=== PATIENT | male | born 1985 | race Caucasian/White ===

== ENCOUNTER → 2018-01-14 | Outpatient (CLI) | payer BC ==
--- NOTE | 2018-01-15 07:50 | MR ---
MR brain HISTORY: Headache Multiplanar multisequence imaging through the brain. Correlation to CT brain 08/26/2016 There is no restricted diffusion. No hemorrhage or hydrocephalus is noted. Focus of fluid signal pres ent in the posterior fossa adjacent to the medial aspect of the right cerebellar hemisphere shows a s table appearance is compatible with arachnoid cyst. Corpus callosum, pituitary, cervical medullary ju nction, cerebellopontine angles are normal. Inflammatory changes present in the maxillary sinuses lef t greater than right. There are normal vascular flow voids. Brain signal is normal. No hemorrhage or hydrocephalus. IMPRESSION: Sinus disease. Incidental arachnoid cyst.
== END | disposition home or self-care (01) ==
LOC: RADMRIMAIN 19:45
PROVIDERS: ATTEND Internal Medicine
DX: R51 Headache (principal)
CPT/HCPCS: 70551

== ENCOUNTER 2018-06-06 16:40 | Emergency (ER) | payer BC ==
[2018-06-06 16:49] VITALS: BP 121/77; PULSE 94; RESP 18; TEMP 98.3
[2018-06-06] MEDS ORDERED: IBUPROFEN 600 MG STARTER PACK 4 TAB BTL PO STA (16:57)
--- NOTE | 2018-06-06 17:00 | ED ---
General Adult HPI - General Chief complaint: Extremity Injury, Lower Stated complaint: LEFT KNEE INJURY Time Seen by Provider: 06/06/18 16:51 Source: patient, family, RN notes reviewed Mode of arrival: wheelchair Limitations: no limitations - History of Present Illness Initial comments: Chief complaint and history of present illness this is a 33-year-old male here with significant other. The patient reports she was playing basketball approximate one hour ago twisted and injured his left knee. Denies any previous knee injuries. - Related Data Previous Rx's Medication Instructions Recorded Ibuprofen [Motrin] 600 mg PO Q6HR PRN #20 tab 06/06/18 Allergies Allergy/AdvReac Type Severity Reaction Status Date / Time No Known Allergies Allergy Verified 06/06/18 16:48 Review of Systems ROS Statement: Those systems with pertinent positive or pertinent negative responses have been documented in the HPI. Review of systems. No complaint of any thing other than pain to his left knee. All systems were reviewed. Past medical problems none. Family history no cancers. Patient denies smoking denies drinking. No ALLERGIES. ROS Other: All systems not noted in ROS Statement are negative. Past Medical History Past Medical History: No Reported History History of Any Multi-Drug Resistant Organisms: None Reported Past Surgical History: Tonsillectomy Past Psychological History: No Psychological Hx Reported Smoking Status: Never smoker Past Alcohol Use History: None Reported Past Drug Use History: None Reported General Exam - General Exam Comments Initial Comments: Physical exam; temp 98.3 pulse 94 respiratory rate 18 pulse ox 97% room air blood pressure 121/77 Examination of the left knee finds no pain with varus valgus or drawer testing. Neurovascular status is intact. Patient reports that when he stands he has pain and feels of the knee wants to go out on him. Patient denies any pain any other joint are part of the body. Has no other complaints this time. Patient was given ibuprofen 600 mg by mouth. Limitations: no limitations Course Vital Signs 06/06/18 16:48 Temperature 98.3 F Pulse Rate 94 Respiratory 18 Rate Blood Pressure 121/77 O2 Sat by Pulse 97 Oximetry Medical Decision Making - Medical Decision Making Medical decision making; is a 33-year-old male here with complaint of injury to his left knee while playing basketball. X-ray of the left knee was done and reviewed by radiologist his findings are; there is no acute fracture or dislocation evident in the left knee. The tricompartment joint spaces appear within normal limits. The overlying soft tissue appears unremarkable. Impression there is no acute fracture dislocation in the left knee. As read by Dr. sierra. Reexamination again found no significant pain or movement with varus valgus or drawer testing. We did discuss acute knee strain and sprain. Also possibility of internal derangement. The patient will continue wearing a neoprene knee stabilizer advised to ice elevate rest and ibuprofen 600 mg for pain and discomfort. He does not have orthopedic surgeon then he'll be referred to the on-call orthopedic surgeon[facility]. Disposition Clinical Impression: Sprain of left knee Disposition: HOME SELF-CARE Condition: Fair Instructions: Knee Sprain (ED) Prescriptions: Ibuprofen [Motrin] 600 mg PO Q6HR PRN #20 tab PRN Reason: Pain Is patient prescribed a controlled substance at d/c from ED?: No Referrals: Carlos Enrique Gómez MD [Primary Care Provider] - 1-2 days Maximus Camp DO [Doctor of Osteopathic Medicine] - 1-2 days Time of Disposition: 17:54
--- NOTE | 2018-06-06 17:33 | XR ---
EXAMINATION TYPE: XR knee complete LT DATE OF EXAM: 06/06/2018 CLINICAL HISTORY: Basketball injury with pain TECHNIQUE: Three views of the left knee are obtained. COMPARISON: None. FINDINGS: There is no acute fracture/dislocation evident in left knee. The tri-compartment joint sp aces appear within normal limits. The overlying soft tissue appears unremarkable. IMPRESSION: There is no acute fracture or dislocation in the left knee.
== END 2018-06-06 18:01 | disposition home or self-care (01) ==
LOC: EC 16:40
DX: S83.92XA Sprain of unspecified site of left knee, initial encounter (principal); X50.1XXA Overexertion from prolonged static or awkward postures, initial encounter; Y93.67 Activity, basketball
CPT/HCPCS: 99283

== ENCOUNTER → 2020-10-05 | Outpatient (CLI) | payer BC ==
--- NOTE | 2020-10-05 16:07 | MR ---
EXAMINATION TYPE: MR knee RT wo con DATE OF EXAM: 10/05/2020 COMPARISON: None HISTORY: RIGHT KNEE PAIN, UNSPECIFIED TEAR OF UNSPECIFIED MENISCUS TECHNIQUE: Multiplanar, multisequence imaging of the right knee is performed without IV contrast. FINDINGS: MEDIAL MENISCUS: Radial tear appears to be at the anterior and posterior medial meniscal junction. Ob lique signal within the posterior horn medial meniscus is present. Communication with the articular s urface is not identified. This could be internal derangement or type I tear. Anterior horn medial men iscus appears intact. Anterior and posterior horns of the lateral meniscus are intact. LATERAL MENISCUS: Anterior and posterior horns are intact without tear. CRUCIATE LIGAMENTS: The anterior and posterior cruciate ligaments are intact and unremarkable. COLLATERAL LIGAMENTS: The medial collateral ligament and lateral collateral ligament complex are inta ct and unremarkable. EXTENSOR MECHANISM: Visualized quadriceps and patellar tendons are intact. EFFUSION: Small joint effusion is present. POPLITEAL CYST: No popliteal/rico cyst. TRICOMPARTMENT SPACES: Joint spaces are mildly narrowed CARTILAGE: There is mild diffuse narrowing of the articular cartilage. BONE MARROW SIGNAL: No focal abnormal marrow signal is appreciated. OTHER: No additional significant abnormality is appreciated. IMPRESSION: 1. Type I internal tear posterior horn medial meniscus. 2. Radial tear between the anterior and posterior horns of the medial meniscus likely present. 3. Small joint effusion. 4. Mild osteoarthritic degenerative change
== END | disposition home or self-care (01) ==
LOC: RADMRIMAIN 13:21
PROVIDERS: ATTEND Internal Medicine
DX: S83.241A Other tear of medial meniscus, current injury, right knee, initial encounter (principal); M17.11 Unilateral primary osteoarthritis, right knee

== ENCOUNTER 2022-09-08 19:02 | Emergency (ER) | payer BC, OTHER ==
[2022-09-08 19:11] VITALS: BP 151/89; PULSE 76; RESP 20; TEMP 97.6
[2022-09-08] MEDS ORDERED: FLUORESCEIN STRIPS 1 MG STRIP LEFT EYE ONE (19:16)
[2022-09-08] MEDS ORDERED: PROPARACAINE 0.5% OPHTH DROPS 15 ML BTL LEFT EYE STA (19:16)
[2022-09-08] MEDS ORDERED: CIPROFLOXACIN 0.3% OPHTH SOLN 5 ML BTL LEFT EYE STA (20:12)
[2022-09-08] MEDS ORDERED: KETOROLAC 15 MG/ML 1 ML VIAL IM STA (20:12)
--- NOTE | 2022-09-08 20:26 | ED ---
Eye Problem HPI - General Chief complaint: Eye Problems Stated complaint: lt eye injury Time Seen by Provider: 09/08/22 19:15 Source: patient Mode of arrival: ambulatory Limitations: no limitations - History of Present Illness Initial comments: Patient is a 37-year-old male who presents to the emergency department with a chief complaint of left eye pain. Patient states he was scratched in the eye with a tree branch this evening. He denies blurry vision, double vision. Denies contact lens use. - Related Data Previous Rx's Medication Instructions Recorded Ibuprofen [Motrin] 600 mg PO Q6HR PRN #20 tab 06/06/18 Allergies Allergy/AdvReac Type Severity Reaction Status Date / Time No Known Allergies Allergy Verified 09/08/22 19:11 Review of Systems ROS Statement: Those systems with pertinent positive or pertinent negative responses have been documented in the HPI. ROS Other: All systems not noted in ROS Statement are negative. Past Medical History Past Medical History: No Reported History History of Any Multi-Drug Resistant Organisms: None Reported Past Surgical History: Orthopedic Surgery, Tonsillectomy Past Psychological History: No Psychological Hx Reported Smoking Status: Never smoker Past Alcohol Use History: None Reported Past Drug Use History: None Reported General Exam Limitations: no limitations General appearance: alert, in no apparent distress Head exam: Present: atraumatic, normocephalic, normal inspection Eye exam: Present: normal appearance, PERRL, EOMI. Absent: scleral icterus, conjunctival injection, periorbital swelling, periorbital tenderness Respiratory exam: Present: normal lung sounds bilaterally. Absent: respiratory distress, wheezes, rales, rhonchi, stridor Cardiovascular Exam: Present: regular rate, normal rhythm, normal heart sounds. Absent: systolic murmur, diastolic murmur, rubs, gallop, clicks Neurological exam: Present: alert, oriented X3, CN II-XII intact Psychiatric exam: Present: normal affect, normal mood Skin exam: Present: warm, dry, intact, normal color. Absent: rash Course Vital Signs 09/08/22 19:09 Temperature 97.6 F Pulse Rate 76 Respiratory 20 Rate Blood Pressure 151/89 O2 Sat by Pulse 99 Oximetry Medical Decision Making - Medical Decision Making This is a 37year-old male presenting with left eye pain. Patient given Toradol and proparacaine drops. Shannon lamp examination reveals corneal abrasion at the 9 to 12 o'clock position. No Cory sign. No foreign body. Corneal abrasion discussed in detail with patient. Antibiotic eyedrops given. Patient discharged with Motrin however prior to discharge reported severe left eye pain. He was given a dose of Dilaudid IM as he will not be driving home. Patient to follow-up with ophthalmology. Dr. Laird is my attending. Disposition Clinical Impression: Left corneal abrasion Disposition: HOME SELF-CARE Condition: Good Instructions (If sedation given, give patient instructions): Corneal Abrasion (ED) Additional Instructions: Take medication as directed. Apply antibiotic drops every 6 hours for the next 5 days. Follow-up with pipe organ builder in one to 2 days. Return to the emergency department if you experience new, concerning, or worsening symptoms. Is patient prescribed a controlled substance at d/c from ED?: No Referrals: None,Stated [Primary Care Provider] - 1-2 days Time of Disposition: 20:26
[2022-09-08] MEDS ORDERED: IBUPROFEN 600 MG STARTER PACK 4 TAB BTL PO STA (21:10)
[2022-09-08] MEDS ORDERED: HYDROmorphone 0.5 MG/0.5 ML SYRINGE IM STA (21:26)
== END 2022-09-08 22:13 | disposition home or self-care (01) ==
LOC: EC 19:02
DX: S05.02XA Injury of conjunctiva and corneal abrasion without foreign body, left eye, initial encounter (principal); W50.4XXA Accidental scratch by another person, initial encounter
CPT/HCPCS: 99282; 96372 ×2; J1885; J1170